=== PATIENT | male | born 1930 | race Caucasian/White ===

== ENCOUNTER 2017-09-16 19:28 | Emergency (ER) | payer MEDICARE, OTHER ==
[~2017-09-16] VITALS: Ht 175.3 cm; Wt 77.1 kg
[~2017-09-16 19:28] MED LIST: AMLO-104 PO; AMLO-98 PO; AMLO-99 PO; ASPI81TA94 PO; CEP500 PO; CIP500 PO; CIPR-214 PO; CLON-329 PO; CLON-393 PO; CLON0.3T35 PO; CRAN400T PO; DOC100 PO; DOX2 PO; DOXA1TAB37 PO; DOXA4TAB58 PO; FAM20 PO; FAMO20TA28 PO; FERR159T PO; FIN5 PO; GEMF600T91 PO; GEMFIBROZIL PO; HCTZ25 PO; HYDR-6016 PO; HYDR12.558 PO; IBU600 PO; LIS20 PO; LOR5/325 PO; NEB5 PO; OMEG-11 PO; OMEP-125 PO; OMEP-218 PO; PHENA200 PO; PRAV10TA45 PO; PRAV20TA65 PO; PRAV40TA78 PO; RENAFOOD; SIMV-1 PO; SIMV-44 PO; SULF-198 PO; VITA-175 PO; [UNRECOGNIZED DRUG - CODE] PO; [UNRECOGNIZED DRUG - OTHER] PO
--- NOTE | 2017-09-16 19:32 | ER Report ---
History and Physical Time Seen By MD: 19:32 HPI/ROS CHIEF COMPLAINT: Weakness HISTORY OF PRESENT ILLNESS: 87-year-old male with a history of renal cancer status post nephrectomy, bladder cancer, chronic renal insufficiency, hypertension, patient notes he's been feeling weak. He feels likes his legs are giving out for the last 2 weeks. Patient notes no fever, chills, coughing, no shortness of breath or chest pain. Patient states the 1st episode occurred about 2 weeks ago. It lasted for 5 minutes and spontaneously resolved. His symptoms gradually returned now are consistent. 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 He has no formal diagnosis of spinal stenosis. Patient denies syncope or lightheadedness. REVIEW OF SYSTEMS: Respiratory: No cough, no dyspnea. Cardiovascular: No chest pain, no palpitations. Gastrointestinal: No vomiting, no abdominal pain. Musculoskeletal: No back pain. Allergies: Coded Allergies: KENZIE Inhibitors (Verified Allergy, Unknown, 09/16/17) ciprofloxacin (Verified Adverse Reaction, Intermediate, CAUSES TENDONS TO SNAP AND STIFFEN., 09/16/17) Home Meds Active Scripts Cephalexin 500 Mg Tab (KEFLEX 500 MG TAB) 500 Mg Tablet, 500 MG PO TID for infection, #20 TAB Prov:DUDLEY FITZPATRICK DO 09/16/17 Doxazosin Mesylate (DOXAZOSIN MESYLATE) 4 Mg Tablet, 2 MG PO 2TABS QAM, 1 TAB 8PM, #90 0 Refills Prov:NELA REY DNP, TRADING SPECIALIST-BC 08/31/17 Reported Medications Aspirin (ASPIRIN) 81 Mg Tab.chew, 1 TAB PO QDAY, TAB.CHEW TAKE 1 TABLET BY MOUTH EVERY DAY 08/09/17 Omeprazole (OMEPRAZOLE) 20 Mg Capsule.dr, 1 CAP PO QDAY, CAP 08/09/17 Pravastatin Sodium (PRAVASTATIN SODIUM) 40 Mg Tablet, 0.5 TAB PO QHS, TAB 08/09/17 Amlodipine Besylate (AMLODIPINE BESYLATE) 10 Mg Tablet, 1 TAB PO QDAY, TAB 08/09/17 Clonidine Hcl (CLONIDINE HCL) 0.2 Mg Tablet, 1.5 TAB PO 1.5 TAB QAM, 1 QHS, TAB 07/02/17 Past Medical/Surgical History Past Medical History HEENT: Reports hx of: hearing deficit (wears hearing aids) Cardiovascular: Reports hx of: abd aortic aneurysm (UNSPECIFIED SITE WITHOUT RUPTURE) hypertension other CV history (HYPERCHOLESTEROLEMIA , SINUS TACHYCARDIA ) Gastrointestinal: Reports hx of: other GI history (RENAL INSUFFICIENCY , L ING HERNIA, ) Genitourinary: Reports hx of: end-stage renal disease (CHRONIC KIDNEY DISEASE STAGE IV (SEVERE)) other urinary history (vasectomy) Hematology/oncology: Reports hx of: other cancer history (KIDNEY CANCER SP. NEPHRECTOMY 2008, TRANSISITIONAL CELL CA OF BLADDER) Past Surgical History Genitourinary: Reports hx of: nephrectomy (2008) Reviewed Nurses Notes: Yes Old Medical Records Reviewed: Yes Hx Smoking: Yes (1 PACK DAILY FOR 40 YEARS) Smoking Status: Former Smoker Exposure to Second Hand Smoke?: No Hx Alcohol Use: Yes Constitutional Vital Sign - Last 24 Hours 09/16/17 09/16/17 09/16/17 09/16/17 19:32 19:37 19:43 19:58 Temp 97.2 Pulse 108 96 86 Resp 18 B/P (MAP) 201/103 182/96 (124) Pulse Ox 95 95 94 O2 Delivery Room Air 09/16/17 09/16/17 09/16/17 09/16/17 20:00 20:13 20:18 20:43 Pulse 96 89 82 99 103 B/P (MAP) 160/93 (115) 159/84 (109) 119/74 (89) 143/91 (108) Pulse Ox 93 95 09/16/17 09/16/17 09/16/17 09/16/17 20:58 21:00 21:05 21:20 Pulse 85 83 85 B/P (MAP) 154/88 (110) Pulse Ox 94 96 95 Physical Exam Vital signs stable, afebrile, pulse ox normal. Orthostatic vital signs are equivocal. Patient has a 30 point drop from supine to sitting in his pressure, heart rate goes up 10 points General Appearance: The patient is alert, has no immediate need for airway protection and no current signs of toxicity. Skin warm, dry, pink, alert and oriented 3 HEENT: Pupils equal and round no injection. TMs normal, oropharynx with moist membranes, no erythema or exudate Respiratory: Chest is non tender, lungs are clear to auscultation. No wheezing or rails, no chest wall tenderness Cardiac: regular rate and rhythm, no murmur Gastrointestinal: Abdomen is soft and non tender, no masses, bowel sounds normal. Musculoskeletal: Neck: Neck is supple and non tender., Back: No tenderness in the midline, negative straight leg raise bilaterally Extremities have full range of motion and are non tender. There is right lower ankle swelling. There is warmth to the ankle joint. There is a effusion noted Skin: No rashes or lesions. DIFFERENTIAL DIAGNOSIS: After history and physical exam differential diagnosis was considered for weakness including but not limited to electrolyte abnormality , depression, anxiety, CVA, spinal cord abnormality, and infectious causes. Medical Decision Making Data Points Result Diagram: 09/16/17200409/16/172004 Laboratory Hematology Test 09/16/17 19:33 09/16/17 20:05 Urine Color Yellow Urine Clarity Clear Urine pH 6.0 pH (4.8-9.5) Urine Specific [place] 1.008 Urine Protein Negative mg/dL (NEGATIVE) Urine Glucose (UA) Negative mg/dL (NEGATIVE) Urine Ketones Negative mg/dL (NEGATIVE) Urine Blood Negative (NEGATIVE) Urine Nitrite Negative (NEGATIVE) Urine Bilirubin Negative (NEGATIVE) Urine Urobilinogen Negative mg/dL (0.2-1.9) Urine Leukocyte Esterase Small (NEGATIVE) Urine RBC <1 /HPF (0-2/HPF) Urine WBC 12 /HPF (0-5/HPF) Urine Squamous Epithelial Cells Few /LPF (</=FEW) Urine Renal Epithelial Cells Few /LPF (NONE-FEW) Urine Bacteria Negative /HPF (NONE-FEW) Urine Mucus None /HPF (NONE-FEW) Red Blood Count 4.18 M/uL (4.00-5.60) Mean Corpuscular Volume 94.4 fL (80.0-96.0) Mean Corpuscular Hemoglobin 33.5 pg (26.0-33.0) Mean Corpuscular Hemoglobin Concent 35.4 g/dL (32.0-36.0) Red Cell Distribution Width 12.5 % (11.5-14.5) Mean Platelet Volume 7.4 fL (7.2-11.1) Neutrophils (%) (Auto) 79.3 % (39.4-72.5) Lymphocytes (%) (Auto) 11.2 % (17.6-49.6) Monocytes (%) (Auto) 5.7 % (4.1-12.4) Eosinophils (%) (Auto) 0.8 % (0.4-6.7) Basophils (%) (Auto) 3.0 % (0.3-1.4) Nucleated RBC Relative Count (auto) 0.0 /100WBC Neutrophils # (Auto) 5.5 K/uL (2.0-7.4) Lymphocytes # (Auto) 0.8 K/uL (1.3-3.6) Monocytes # (Auto) 0.4 K/uL (0.3-1.0) Eosinophils # (Auto) 0.1 K/uL (0.0-0.5) Basophils # (Auto) 0.2 K/uL (0.0-0.1) Nucleated RBC Absolute Count (auto) 0.00 K/uL Erythrocyte Sedimentation Rate 7 mm/HOUR (0-20) Sodium Level 135 mmol/L (137-145) Potassium Level 3.8 mmol/L (3.5-5.0) Chloride Level 102 mmol/L (98-107) Carbon Dioxide Level 18 mmol/L (22-30) Blood Urea Nitrogen 29 mg/dl (9-21) Creatinine 2.00 mg/dl (0.66-1.25) Glomerular Filtration Rate Calc 31.6 Random Glucose 108 mg/dl (75-110) Calcium Level 9.4 mg/dl (8.4-10.2) Total Bilirubin 0.9 mg/dl (0.2-1.3) Aspartate Amino Transf (AST/SGOT) 31 U/L (0-35) Alanine Aminotransferase (ALT/SGPT) 34 U/L (0-56) Alkaline Phosphatase 95 U/L (0-126) Troponin I 0.013 ng/ml C-Reactive Protein < 0.5 mg/dl (<1.0) Total Protein 7.9 gm/dl (6.3-8.2) Albumin 4.5 g/dl (3.5-5.0) Chemistry Test 09/16/17 19:33 09/16/17 20:05 Urine Color Yellow Urine Clarity Clear Urine pH 6.0 pH (4.8-9.5) Urine Specific [place] 1.008 Urine Protein Negative mg/dL (NEGATIVE) Urine Glucose (UA) Negative mg/dL (NEGATIVE) Urine Ketones Negative mg/dL (NEGATIVE) Urine Blood Negative (NEGATIVE) Urine Nitrite Negative (NEGATIVE) Urine Bilirubin Negative (NEGATIVE) Urine Urobilinogen Negative mg/dL (0.2-1.9) Urine Leukocyte Esterase Small (NEGATIVE) Urine RBC <1 /HPF (0-2/HPF) Urine WBC 12 /HPF (0-5/HPF) Urine Squamous Epithelial Cells Few /LPF (</=FEW) Urine Renal Epithelial Cells Few /LPF (NONE-FEW) Urine Bacteria Negative /HPF (NONE-FEW) Urine Mucus None /HPF (NONE-FEW) White Blood Count 6.9 k/uL (4.5-11.0) Red Blood Count 4.18 M/uL (4.00-5.60) Hemoglobin 14.0 g/dL (14.0-18.0) Hematocrit 39.5 % (42.0-52.0) Mean Corpuscular Volume 94.4 fL (80.0-96.0) Mean Corpuscular Hemoglobin 33.5 pg (26.0-33.0) Mean Corpuscular Hemoglobin Concent 35.4 g/dL (32.0-36.0) Red Cell Distribution Width 12.5 % (11.5-14.5) Platelet Count 171 K/uL (150-450) Mean Platelet Volume 7.4 fL (7.2-11.1) Neutrophils (%) (Auto) 79.3 % (39.4-72.5) Lymphocytes (%) (Auto) 11.2 % (17.6-49.6) Monocytes (%) (Auto) 5.7 % (4.1-12.4) Eosinophils (%) (Auto) 0.8 % (0.4-6.7) Basophils (%) (Auto) 3.0 % (0.3-1.4) Nucleated RBC Relative Count (auto) 0.0 /100WBC Neutrophils # (Auto) 5.5 K/uL (2.0-7.4) Lymphocytes # (Auto) 0.8 K/uL (1.3-3.6) Monocytes # (Auto) 0.4 K/uL (0.3-1.0) Eosinophils # (Auto) 0.1 K/uL (0.0-0.5) Basophils # (Auto) 0.2 K/uL (0.0-0.1) Nucleated RBC Absolute Count (auto) 0.00 K/uL Erythrocyte Sedimentation Rate 7 mm/HOUR (0-20) Glomerular Filtration Rate Calc 31.6 Calcium Level 9.4 mg/dl (8.4-10.2) Total Bilirubin 0.9 mg/dl (0.2-1.3) Aspartate Amino Transf (AST/SGOT) 31 U/L (0-35) Alanine Aminotransferase (ALT/SGPT) 34 U/L (0-56) Alkaline Phosphatase 95 U/L (0-126) Troponin I 0.013 ng/ml C-Reactive Protein < 0.5 mg/dl (<1.0) Total Protein 7.9 gm/dl (6.3-8.2) Albumin 4.5 g/dl (3.5-5.0) Urinalysis Test 09/16/17 19:33 Urine Color Yellow Urine Clarity Clear Urine pH 6.0 pH (4.8-9.5) Urine Specific Stringer 1.008 Urine Protein Negative mg/dL (NEGATIVE) Urine Glucose (UA) Negative mg/dL (NEGATIVE) Urine Ketones Negative mg/dL (NEGATIVE) Urine Blood Negative (NEGATIVE) Urine Nitrite Negative (NEGATIVE) Urine Bilirubin Negative (NEGATIVE) Urine Urobilinogen Negative mg/dL (0.2-1.9) Urine Leukocyte Esterase Small (NEGATIVE) Urine RBC <1 /HPF (0-2/HPF) Urine WBC 12 /HPF (0-5/HPF) Urine Squamous Epithelial Cells Few /LPF (</=FEW) Urine Renal Epithelial Cells Few /LPF (NONE-FEW) Urine Bacteria Negative /HPF (NONE-FEW) Urine Mucus None /HPF (NONE-FEW) EKG/Imaging EKG Interpretation 12 lead EK Rhythm: normal sinus rhythm with occasional PAC [place]: normal QRS: normal ST segments: normal, comparison to previous EKG dated 06/24/15, no overall significant change, on previous EKG there were diffuse ST segment depressions that were downsloping in numerous leads. Those have resolved. There is diffuse T-wave flattening throughout numerous leads Imaging X-ray: Single view chest x-ray was obtained. I viewed the images myself on the PACS system. My interpretation of the images is: No infiltrate, no effusion, normal mediastinum. The radiologist interpretation had no clinically significant variation from this interpretation. CT scan of the lumbar spine without contrast was obtained. The results of the study are L-SPINE W/O CONTRAST HISTORY: Back pain and leg weakness. Eval for spinal stenosis. History of renal cancer. COMPARISON: CT abdomen and pelvis 09/02/2015 and 06/08/2007. TECHNIQUE: Axial images were obtained through the lumbar spine. Coronal and sagittal reformatted images were obtained from the axial source data. One of the following dose optimization techniques was utilized in the performance of this exam: Automated exposure control; adjustment of the mA and/ or kV according to the patient's size; or use of an iterative reconstruction technique. Specific details can be referenced in the facility's radiology CT exam operational policy. CONTRAST: None. FINDINGS: Musculoskeletal/vertebra: There is near complete obliteration of the L3-4 disc space with fusion of the vertebral bodies across the disc space, unchanged from August 2015. There is 3-4 mm retrolisthesis of L2 on L3, unchanged. There is straightening of the normal lumbar lordosis. There is multilevel degenerative disc disease that is moderate to severe, and there is multilevel degenerative facet disease that is severe. T11-12: There is mild circumferential disc osteophyte and there is mild degenerative facet disease. There is facet hypertrophy. There is no central or foraminal stenosis. T12-L1: There are circumferential disc osteophyte, mild loss of disc height, a vacuum cleft, degenerative facet disease, and facet hypertrophy. Together, degenerative changes slightly narrow the spinal canal. No foraminal stenosis. L1-2: There is moderate loss of disc height, circumferential disc osteophyte, and facet hypertrophy. Together, degenerative changes moderately narrow the spinal canal (axial image 59 series 2). There is mild bilateral foraminal stenosis. L2-3: There are severe loss of disc height, circumferential disc osteophyte, L2 on L3 retrolisthesis, degenerative facet disease, and facet hypertrophy. Together, degenerative changes cause severe spinal stenosis (axial image 81 series 2). There is mild bilateral foraminal stenosis. L3-4: There are circumferential osteophyte and degenerative facet disease. There is no central stenosis. There is moderate bilateral foraminal stenosis. L4-5: There is a circumferential disc bulge. There is degenerative facet disease and facet hypertrophy. There is a vacuum cleft. No central stenosis. There is severe bilateral foraminal stenosis. L5-S1: There are circumferential disc osteophyte, a vacuum cleft, and severe degenerative facet disease. No central stenosis. There is severe bilateral foraminal stenosis. Visualized retroperitoneal / abdominal structures: There is mild to moderate atherosclerosis of the aorta. There is focal dilation of the infrarenal abdominal aorta, measuring at least 2.2 cm. The anterior extent is not completely included on the images, but appears less than 4 cm and appears similar to previous CT abdomen and pelvis from 2016. There is a normal appendix. There is a small type I hiatal hernia. Left kidney is absent. IMPRESSION: 1. Multilevel degenerative changes of the spine cause severe central stenosis at L2-3 and moderate central stenosis at L1-2. 2. There is moderate bilateral foraminal stenosis at L3-4 and severe bilateral foraminal stenosis at L4-5 and at L5-S1. The study was read by the radiologist. I viewed the images myself on the PACS system. ED Course/Re-evaluation Clinical Indication for ER IV: Hydration, IV Access ED Course Patient was admitted to an examination room. H&P was done. The differential diagnoses was considered. On clinical examination. Patient has a nonfocal neurologic examination. He has a negative straight leg raise. Diagnostic evaluations undertaken. Patient has some white cells in his urine and trace leukocyte esterase. He may have a subtle urinary tract infection. He appears mildly dehydrated. Comparing previous BUN creatinines from May of last year. Prior to that he had worsening renal failure, but it appears to improved. Patient feels better with 1 L of IV fluid. Patient will be covered with Keflex 500 mg 3 times a day for urinary tract infection. A urinary culture was ordered. He's advised to follow-up with [facility] for evaluation of his spine is already scheduled. Decision to Disposition Date: Sep 16, 2017 Decision to Disposition Time: 20:49 Depart Departure Latest Vital Signs Vital Signs Date Time Temp Pulse Resp B/P (MAP) Pulse Ox O2 Delivery O2 Flow Rate FiO2 09/16/17 21:20 85 95 09/16/17 21:00 154/88 (110) 09/16/17 19:32 97.2 18 Room Air Impression: Primary Impression: Leg weakness Additional Impressions: Urinary tract infection Dehydration Degenerative disc disease History of renal cell cancer History of bladder cancer Spinal stenosis of lumbar region Condition: Improved Disposition: HOME OR SELF-CARE Referrals: NELA REY DNP, TRADING SPECIALIST-BC (PCP) New Scripts Cephalexin 500 Mg Tab (KEFLEX 500 MG TAB) 500 Mg Tablet 500 MG PO TID for infection, #20 TAB Prov: DUDLEY FITZPATRICK DO 09/16/17 Patient Instructions: Dehydration (ED), Lumbar Spinal Stenosis (ED), Urinary Tract Infection in Men (ED) Additional Instructions: Take antibiotic 3 times a day Increase your fluid intake Follow-up with your primary care if unimproved in 3-5 days Follow-up with [facility] as planned Problem Qualifiers Primary Impression: Leg weakness Laterality: bilateral Qualified Codes: R29.898 - Other symptoms and signs involving the musculoskeletal system Additional Impressions: Urinary tract infection Urinary tract infection type: acute cystitis Hematuria presence: without hematuria Qualified Codes: N30.00 - Acute cystitis without hematuria Degenerative disc disease Spinal region: lumbosacral Qualified Codes: M51.37 - Other intervertebral disc degeneration, lumbosacral region Spinal stenosis of lumbar region Neurogenic claudication status: with neurogenic claudication Qualified Codes : M48.062 - Spinal stenosis, lumbar region with neurogenic claudication DUDLEY FITZPATRICK DO Sep 16, 2017 19:32
[2017-09-16] MEDS ORDERED: NS(*) 0.9% 1000 ML BAG 1,000 ML IV ONE (19:49)
[2017-09-16 20:19] LABS: PLATELET COUNT, AUTOMATED 171 K/uL (150-450)
--- NOTE | 2017-09-16 20:55 | RADIOLOGY IMAGING REPORT ---
FACILITY: [facility] - [place] PATIENT NAME: Manjinder Watkins : 1930 MR: [id number] V: [id number] EXAM DATE: ORDERING PHYSICIAN: DUDLEY FITZPATRICK TECHNOLOGIST: Location: [facility] [place] Patient: Manjinder Watkins : 1930 Visit/Account:[id number] Date of Sevice: 09/16/2017 Examination: CHEST SINGLE AP Comparison: 04/02/2010. History: weakness Findings: Cardiac and hilar contour size is within normal limits. Left lower lung mild volume loss ve rsus scarring adjacent to the cardiac apex. No consolidation, nodule, or peribronchial inflammation. No pneumothorax, edema, or effusion. Advanced degenerative change in the visualized upper lumbar spin e. IMPRESSION: No evidence of acute cardiopulmonary disease. Report Dictated By: Benoit Cuenca MD at 09/16/2017 8:47 PM Report E-Signed By: Benoit Cuenca MD at 09/16/2017 8:51 PM WSN:[id number]
[2017-09-16 21:00] VITALS: BP 154/88
--- NOTE | 2017-09-16 21:35 | RADIOLOGY IMAGING REPORT ---
FACILITY: [facility] PATIENT NAME: Manjinder Watkins : 1930 MR: [id number] V: [id number] EXAM DATE: ORDERING PHYSICIAN: DUDLEY FITZPATRICK TECHNOLOGIST: Location: [facility] Patient: Manjinder Watkins : 1930 Visit/Account:[id number] Date of Sevice: 09/16/2017 L-SPINE W/O CONTRAST HISTORY: Back pain and leg weakness. Eval for spinal stenosis. History of renal cancer. COMPARISON: CT abdomen and pelvis 09/02/2015 and 06/08/2007. TECHNIQUE: Axial images were obtained through the lumbar spine. Coronal and sagittal reformatted imag es were obtained from the axial source data. One of the following dose optimization techniques was utilized in the performance of this exam: Autom ated exposure control; adjustment of the mA and/or kV according to the patient's size; or use of an i terative reconstruction technique. Specific details can be referenced in the facility's radiology CT exam operational policy. CONTRAST: None. FINDINGS: Musculoskeletal/vertebra: There is near complete obliteration of the L3-4 disc space with fusion of t he vertebral bodies across the disc space, unchanged from August 2015. There is 3-4 mm retrolisthes is of L2 on L3, unchanged. There is straightening of the normal lumbar lordosis. There is multilevel degenerative disc disease that is moderate to severe, and there is multilevel degenerative facet dise ase that is severe. T11-12: There is mild circumferential disc osteophyte and there is mild degenerative facet disease. T here is facet hypertrophy. There is no central or foraminal stenosis. T12-L1: There are circumferential disc osteophyte, mild loss of disc height, a vacuum cleft, degenera tive facet disease, and facet hypertrophy. Together, degenerative changes slightly narrow the spinal canal. No foraminal stenosis. L1-2: There is moderate loss of disc height, circumferential disc osteophyte, and facet hypertrophy. Together, degenerative changes moderately narrow the spinal canal (axial image 59 series 2). There is mild bilateral foraminal stenosis. L2-3: There are severe loss of disc height, circumferential disc osteophyte, L2 on L3 retrolisthesis, degenerative facet disease, and facet hypertrophy. Together, degenerative changes cause severe spina l stenosis (axial image 81 series 2). There is mild bilateral foraminal stenosis. L3-4: There are circumferential osteophyte and degenerative facet disease. There is no central stenos is. There is moderate bilateral foraminal stenosis. L4-5: There is a circumferential disc bulge. There is degenerative facet disease and facet hypertroph y. There is a vacuum cleft. No central stenosis. There is severe bilateral foraminal stenosis. L5-S1: There are circumferential disc osteophyte, a vacuum cleft, and severe degenerative facet disea se. No central stenosis. There is severe bilateral foraminal stenosis. Visualized retroperitoneal / abdominal structures: There is mild to moderate atherosclerosis of the a haroldo. There is focal dilation of the infrarenal abdominal aorta, measuring at least 2.2 cm. The anter ior extent is not completely included on the images, but appears less than 4 cm and appears similar t o previous CT abdomen and pelvis from 2016. There is a normal appendix. There is a small type I hiata l hernia. Left kidney is absent. IMPRESSION: 1. Multilevel degenerative changes of the spine cause severe central stenosis at L2-3 and moderate ce ntral stenosis at L1-2. 2. There is moderate bilateral foraminal stenosis at L3-4 and severe bilateral foraminal stenosis at L4-5 and at L5-S1. Report Dictated By: Jill Quiros at 09/16/2017 9:08 PM Report E-Signed By: Jill Quiros at 09/16/2017 9:30 PM WSN:[id number]
[2017-09-16] MEDS ORDERED: CEPH500T7 PO (21:47)
[2017-09-16] MEDS ORDERED: CEPHALEXIN MONO 500 MG CAP PO ONE (21:50)
--- NOTE | 2017-09-16 22:24 | EKG ---
FACILITY: [facility] - [place] PATIENT NAME: RAMAN ESPANA : [id number] MR: [id number] V: [id number] EXAM DATE: ORDERING PHYSICIAN: DUDLEY FITZPATRICK TECHNOLOGIST: LACEY Test Reason : WEAKNESS Blood Pressure : / mmHG Vent. Rate : 088 BPM Atrial Rate : 088 BPM P-R Int : 192 ms QRS Dur : 084 ms QT Int : 362 ms P-R-T Axes : 073 056 082 degrees QTc Int : 438 ms Sinus rhythm with premature atrial complexes Nonspecific T wave flattening in precordial leads Confirmed by JOSE JUAN COLEY ([id number] on 09/17/2017 5:34:42 AM Referred By: Confirmed By:JOSE JUAN COLEY
== END 2017-09-16 21:57 | disposition home or self-care (01) ==
LOC: ER 19:37
DX: R29.898 Other symptoms and signs involving the musculoskeletal system (principal); N30.00 Acute cystitis without hematuria; M51.37 Other intervertebral disc degeneration, lumbosacral region; M48.062 Spinal stenosis, lumbar region with neurogenic claudication; E86.0 Dehydration; Z87.891 Personal history of nicotine dependence
CPT/HCPCS: 71045; 72131; 81001; 84484; 85025; 85651; 86140; 87088; 93005; 96360; 96361; 99284; A9270; J7030; 82040; 82247; 82310; 82374; 82435; 82565; 82947; 84075; 84132; 84155; 84295; 84450; 84460; 84520

== ENCOUNTER → 2017-10-06 | Outpatient (CLI) | payer MEDICARE ==
[~2017-10-06] MED LIST changes: +CEPH500T7 PO
== END ==
LOC: LAB 09:20
DX: C67.1 Malignant neoplasm of dome of bladder (principal)
CPT/HCPCS: 99001